=== PATIENT | female | born 1965 | race Caucasian/White ===

== ENCOUNTER 2018-01-12 14:52 | Emergency (ER) | payer MEDICAID ==
[~2018-01-12] VITALS: Ht 152.4 cm; Wt 70.0 kg
[2018-01-12 15:05] VITALS: BP 125/91
== END 2018-01-12 17:29 | disposition home or self-care (01) ==
LOC: ED 17:15
DX: S16.1XXA Strain of muscle, fascia and tendon at neck level, initial encounter (principal); S39.012A Strain of muscle, fascia and tendon of lower back, initial encounter; S20.219A Contusion of unspecified front wall of thorax, initial encounter; V49.49XA Driver injured in collision with other motor vehicles in traffic accident, initial encounter; Y93.89 Activity, other specified; Y92.89 Other specified places as the place of occurrence of the external cause; Y99.8 Other external cause status
CPT/HCPCS: 71046; 72020; 72050; 72072; 72110; 93005; 99284

== ENCOUNTER 2020-07-09 09:05 | Emergency (ER) | payer MEDICAID ==
[~2020-07-09] VITALS: Ht 152.4 cm; Wt 74.5 kg
--- NOTE | 2020-07-09 09:31 | NUR ---
PT WALKED BACK FROM TRIAGE WITH CHIEF COMPLAINT OF ABD PAIN, CONSTIPATION AND NAUSEA FOR YEARS, RECENTLY DEVELOPED NUMBNESS IN FINGERS FOR TWO WEEKS.
[2020-07-09] MEDS ORDERED: ONDANSETRON 2MG/ML, 2ML ONE (09:43)
[2020-07-09] MEDS ORDERED: FAMOTIDINE 20 MG/2 ML ONE (09:43)
[2020-07-09] MEDS ORDERED: MAALOX/HYOSCYAMINE/LIDOCAINE 45 ML BTL ONE (09:43)
[2020-07-09 09:47] LABS: MICROSCOPIC INDICATED
--- NOTE | 2020-07-09 09:49 | NUR ---
Pt to imaging.
[2020-07-09 09:59] LABS: BASOPHILS % (AUTO) 1 % (0-1); EOSINOPHILS % (AUTO) 1 % (1-7); LYMPHOCYTES % (AUTO) 37 % (22-44); MD NO; MEAN CORPUSCULAR HEMOGLOBIN 30.3 pg (27.0-34.8); MEAN CORPUSCULAR HGB CONC 33.5 g/dL (32.4-35.8); MEAN PLATELET VOLUME 7.1 fL (7.4-10.4); MONOCYTES % (AUTO) 8 % (2-9); NEUTROPHILS % (AUTO) 53 % (42-75); PLATELET COUNT 330 x10^3/uL (130-400); RED BLOOD COUNT 4.91 x10^6/uL (3.82-5.3); RED CELL DISTRIBUTION WIDTH 13.4 % (9.6-15.2)
[2020-07-09] MEDS ORDERED: SODIUM CHLORIDE FLUSH 10ML SYR IVF ONE (10:00)
[2020-07-09] MEDS ORDERED: ONDANSETRON 2MG/ML, 2ML IVPush ONE (10:00)
[2020-07-09] MEDS ORDERED: FAMOTIDINE 20 MG/2 ML IVPush ONE (10:00)
[2020-07-09] MEDS ORDERED: MAALOX/HYOSCYAMINE/LIDOCAINE 45 ML BTL PO ONE (10:00)
[2020-07-09 10:05] LABS: ALANINE AMINOTRANSFERASE 99 U/L (12-78); ALBUMIN 3.6 g/dL (3.4-5.0); ANION GAP 6 mmol/L (5-15); CHLORIDE 106 mmol/L (98-107); CREATININE 0.82 mg/dL (0.55-1.02)
[2020-07-09 10:08] LABS: ALKALINE PHOSPHATASE 121 U/L (45-117); BILIRUBIN,TOTAL 0.6 mg/dL (0.2-1.0); TOTAL PROTEIN 7.2 g/dL (6.4-8.2)
--- NOTE | 2020-07-09 10:22 | NUR ---
REPORT TO AMAN DIEGO.
--- NOTE | 2020-07-09 10:30 | NUR ---
REPORT RECEIVED FROM JOHNATHON OCHOA.
--- NOTE | 2020-07-09 10:58 | NUR ---
PRECEPTOR NOTE: PT BACK FROM XRAY, AWAITING US AT THIS TIME. PIV IN PROGRESS.
--- NOTE | 2020-07-09 12:12 | NUR ---
pt medicated per emar. pepcid diluted with 10 ml ns and pushed slowly over 5 min. pt tolerated well. pt a&o, resps even and unlabored, no actue distress noted, no complaints at this time. all results back, chart up for recheck, awaiding md and dispo.
--- NOTE | 2020-07-09 12:59 | NUR ---
PT EDUCATED ON DISCHARGE INSTRUCTIONS AND PRESCRIPTION. PT AMBULATED TO DISCHARGE DESK WITH STEADY GAIT.
[2020-07-09 13:00] VITALS: BP 142/92
== END 2020-07-09 13:01 | disposition home or self-care (01) ==
LOC: ED 09:46
DX: K29.50 Unspecified chronic gastritis without bleeding (principal); R10.13 Epigastric pain; R94.5 Abnormal results of liver function studies
CPT/HCPCS: 36415; 74022; 76700; 80053; 81001; 83690; 85025; 87086; 93005; 96374; 96375; 99285; J2405